=== PATIENT | male | born 1940 | race Caucasian/White ===

== ENCOUNTER 2019-01-24 16:50 | Emergency (ER) | payer MEDICARE, OTHER ==
[~2019-01-24] VITALS: Ht 175.3 cm; Wt 114.0 kg
[2019-01-24 17:58] LABS: BASOPHILS % (AUTO) 0.7 % (0-1); EOSINOPHILS # (AUTO) 0.1 X10'3 (0-0.9); EOSINOPHILS % (AUTO) 1.4 % (0-6); HEMOGLOBIN 13.9 g/dl (14.0-17.9); LYMPHOCYTES # (AUTO) 1.4 X10'3 (1.1-4.8); LYMPHOCYTES % (AUTO) 22.2 % (21-51); MEAN CORPUSCULAR HGB CONC 33.8 g/dL (33.0-36.5); MEAN CORPUSCULAR VOLUME 100.7 FL (78-98); MEAN PLATELET VOLUME 9.6 FL (7.4-10.4); MONOCYTES # (AUTO) 0.9 X10'3 (0-0.9); MONOCYTES % (AUTO) 14.4 % (2-12); NEUTROPHILS # (AUTO) 3.9 X10'3 (1.8-7.7); NEUTROPHILS % (AUTO) 61.3 % (42-75); PLATELET COUNT 161 X10'3 (140-440); RED BLOOD COUNT 4.08 X10'6 (4.70-6.10); RED CELL DISTRIBUTION WIDTH 13.8 % (11.5-14.5); WHITE BLOOD COUNT 6.4 X10'3 (4.5-11.0)
[2019-01-24 18:18] LABS: ALANINE AMINOTRANSFERASE 32 U/L (12-78); ALBUMIN 3.4 G/DL (3.4-5.0); ALBUMIN/GLOBULIN RATIO 1.1 (1.1-1.5); ALKALINE PHOSPHATASE 63 IU/L (46-116); ANION GAP 9 (8-16); ASPARTATE AMINO TRANSFERASE 34 U/L (10-37); BILIRUBIN,TOTAL 1.1 MG/DL (0.1-1.0); BLOOD UREA NITROGEN 17 MG/DL (7-18); BUN/CREATININE RATIO 14.9 (5.4-32.0); CALCIUM 8.6 MG/DL (8.5-10.1); CHLORIDE 104 MMOL/L (99-107); CREATININE 1.14 MG/DL (0.60-1.10); GLUCOSE 115 MG/DL (70-104); POTASSIUM 4.1 MMOL/L (3.5-5.1); SODIUM 137 MMOL/L (135-145); TOTAL CARBON DIOXIDE 23.6 MMOL/L (24-32); TOTAL PROTEIN 6.6 G/DL (6.4-8.2); eGFR 62 ML/MIN
[2019-01-24] MEDS ORDERED: azithromycin 250mg tablet PO ONE (20:00)
[2019-01-24] MEDS ORDERED: AZIT250T PO (20:01)
[2019-01-24] MEDS ORDERED: normal saline 1000ML IV soln IVB ONE (20:30)
--- NOTE | 2019-01-24 21:23 | NUR ---
DR BYRD AT BEDSIDE, AT BEDSIDE,NO DISTRESS NOTED,WILL CONT TO MONITOR.
[2019-01-24 21:50] VITALS: BP 164/76
[2019-01-24 22:00] LABS: CLARITY,URINE CLEAR (Clear); COLOR,URINE YELLOW (Yellow); GLUCOSE, URINE NEGATIVE (Neg); KETONES,URINE TRACE mg/dl (Neg); LEUKOCYTE ESTERASE ,URINE NEGATIVE (Neg); NITRITES, URINE NEGATIVE (Neg); OCCULT BLOOD,URINE NEGATIVE (Neg); PH,URINE 6.5 (4.8-8.0); PROTEIN,URINE NEGATIVE (Neg); UA COLLECTION TYPE CLN CATCH MIDSTREAM; UROBILINOGEN,URINE 0.2 E.U/dL (0.2-1.0)
== END 2019-01-24 21:53 | disposition home or self-care (01) ==
LOC: ER 16:50
DX: E86.0 Dehydration (principal); R53.1 Weakness; R05 Cough; E78.00 Pure hypercholesterolemia, unspecified; I10 Essential (primary) hypertension; E11.42 Type 2 diabetes mellitus with diabetic polyneuropathy; F17.200 Nicotine dependence, unspecified, uncomplicated; Z98.890 Other specified postprocedural states
CPT/HCPCS: 36415; 71045; 80053; 81003; 83605; 85025; 87040; 93005; 99284; J7030

== ENCOUNTER 2019-11-24 09:42 | Emergency (ER) | payer OTHER ==
[~2019-11-24] VITALS: Ht 175.3 cm; Wt 109.5 kg
[2019-11-24] MEDS ORDERED: magnesium citrate 296ml oral solution PO ONE (11:30)
[2019-11-24 11:42] VITALS: BP 131/66
[2019-11-24 13:45] LABS: OCCULT BLOOD STOOL NEGATIVE (Neg)
== END 2019-11-24 11:44 | disposition home or self-care (01) ==
LOC: ER 09:43
DX: K59.00 Constipation, unspecified (principal); N28.1 Cyst of kidney, acquired; E11.42 Type 2 diabetes mellitus with diabetic polyneuropathy; E78.00 Pure hypercholesterolemia, unspecified; I10 Essential (primary) hypertension; J44.9 Chronic obstructive pulmonary disease, unspecified; G47.30 Sleep apnea, unspecified; Z98.890 Other specified postprocedural states
CPT/HCPCS: 74176; 82272; 99284

== ENCOUNTER 2019-12-13 19:01 | Emergency (ER) | payer MEDICARE, OTHER ==
[~2019-12-13] VITALS: Ht 172.7 cm; Wt 110.0 kg
[2019-12-13] MEDS ORDERED: aspirin 81mg tab.chew PO ONE (19:40)
[2019-12-13] MEDS ORDERED: diltiazem 5mg/ml 5ml inj. IV ONE (19:40)
--- NOTE | 2019-12-13 19:56 | NUR ---
PT STATED HE DOES NOT WANT TO TAKE HIS ASPIRIN . SAID HE DOES NOT WANT TO TAKE THE ASPIRIN . EDUCATED PT THAT THE ASPIRIN WILL HELP HIS CHEST PAIN . PT STILL NOT WANTING TO TAKE THE MEDICATION ASKED TO SPEAK TO MD . NOTIFIED DR ARROYO OF THE PT CONCERNS .
--- NOTE | 2019-12-13 19:58 | NUR ---
CHEST XRAY COMPLETE
[2019-12-13 20:01] LABS: BASOPHILS % (AUTO) 0.8 % (0-1); EOSINOPHILS # (AUTO) 0.3 X10'3 (0-0.9); HEMOGLOBIN 14.2 g/dl (14.0-17.9); LYMPHOCYTES # (AUTO) 1.9 X10'3 (1.1-4.8); LYMPHOCYTES % (AUTO) 31.9 % (21-51); MEAN CORPUSCULAR HEMOGLOBIN 34.4 PG (27.0-31.0); MEAN CORPUSCULAR HGB CONC 33.7 g/dL (33.0-36.5); MEAN PLATELET VOLUME 9.5 FL (7.4-10.4); MONOCYTES # (AUTO) 0.6 X10'3 (0-0.9); MONOCYTES % (AUTO) 10.6 % (2-12); NEUTROPHILS # (AUTO) 3.1 X10'3 (1.8-7.7); NEUTROPHILS % (AUTO) 51.7 % (42-75); PLATELET COUNT 152 X10'3 (140-440); RED BLOOD COUNT 4.11 X10'6 (4.70-6.10); RED CELL DISTRIBUTION WIDTH 13.6 % (11.5-14.5)
--- NOTE | 2019-12-13 20:06 | NUR ---
PT TO CT
[2019-12-13 20:15] LABS: ALANINE AMINOTRANSFERASE 22 U/L (12-78); ALBUMIN 3.4 G/DL (3.4-5.0); ALBUMIN/GLOBULIN RATIO 1.2 (1.1-1.5); ALKALINE PHOSPHATASE 109 IU/L (46-116); ANION GAP 9 (8-16); ASPARTATE AMINO TRANSFERASE 16 U/L (10-37); BILIRUBIN,TOTAL 0.4 MG/DL (0.1-1.0); BLOOD UREA NITROGEN 17 MG/DL (7-18); BUN/CREATININE RATIO 15.9 (5.4-32.0); CALCIUM 8.1 MG/DL (8.5-10.1); CHLORIDE 106 MMOL/L (99-107); CREATININE 1.07 MG/DL (0.60-1.10); GLUCOSE 138 MG/DL (70-104); POTASSIUM 3.8 MMOL/L (3.5-5.1); SODIUM 142 MMOL/L (135-145); TOTAL PROTEIN 6.2 G/DL (6.4-8.2); eGFR 66 ML/MIN
[2019-12-13 20:17] LABS: TROPONIN I < 0.04 NG/ML (0.0-0.05)
--- NOTE | 2019-12-13 20:18 | NUR ---
pt back from ct
--- NOTE | 2019-12-13 20:27 | NUR ---
md todd clarified aspirin with patient pt hr at 76 -78 dr todd aware the diltiazen at this time repeat 12 lead ekg
--- NOTE | 2019-12-13 20:30 | NUR ---
TECH BAIG TO DO 12 LEAD
[2019-12-13 20:58] LABS: CLARITY,URINE CLEAR (Clear); COLOR,URINE YELLOW (Yellow); GLUCOSE, URINE 100 mg/dl (Neg); KETONES,URINE NEGATIVE (Neg); LEUKOCYTE ESTERASE ,URINE NEGATIVE (Neg); NITRITES, URINE NEGATIVE (Neg); OCCULT BLOOD,URINE NEGATIVE (Neg); PROTEIN,URINE NEGATIVE (Neg); UROBILINOGEN,URINE 0.2 E.U/dL (0.2-1.0)
[2019-12-13 21:03] LABS: UA COLLECTION TYPE URINAL
[2019-12-13] MEDS ORDERED: FLEC50TA28 PO (21:41)
[2019-12-13 22:57] VITALS: BP 164/65
== END 2019-12-13 22:59 | disposition home or self-care (01) ==
LOC: ER 19:02
DX: R42 Dizziness and giddiness (principal); I48.91 Unspecified atrial fibrillation; R51 Headache; R06.02 Shortness of breath; R07.9 Chest pain, unspecified; E11.42 Type 2 diabetes mellitus with diabetic polyneuropathy; E78.00 Pure hypercholesterolemia, unspecified; I10 Essential (primary) hypertension; J44.9 Chronic obstructive pulmonary disease, unspecified; Z98.890 Other specified postprocedural states; Z79.899 Other long term (current) drug therapy
CPT/HCPCS: 36415; 70450; 71045; 80053; 81003; 84484; 85025; 85610; 93005; 99285

== ENCOUNTER 2020-07-04 11:47 | Emergency (ER) | payer OTHER, MEDICARE ==
[~2020-07-04] VITALS: Ht 175.3 cm; Wt 109.9 kg
[~2020-07-04 11:47] MED LIST: FLEC50TA28 PO
[2020-07-04] MEDS ORDERED: TETanus/Pertussis (Acell)/Diphther VAC/PF (Tdap-Adult) 0.5ml syringe IMVAC ONE (13:35)
[2020-07-04 13:39] VITALS: BP 138/68
== END 2020-07-04 13:37 | disposition home or self-care (01) ==
LOC: ER 11:48
DX: T23.202A Burn of second degree of left hand, unspecified site, initial encounter (principal); T23.201A Burn of second degree of right hand, unspecified site, initial encounter; T20.212A Burn of second degree of left ear [any part, except ear drum], initial encounter; E11.42 Type 2 diabetes mellitus with diabetic polyneuropathy; E78.00 Pure hypercholesterolemia, unspecified; I10 Essential (primary) hypertension; J44.9 Chronic obstructive pulmonary disease, unspecified; Z98.890 Other specified postprocedural states; Z79.899 Other long term (current) drug therapy; X08.8XXA Exposure to other specified smoke, fire and flames, initial encounter; Y93.89 Activity, other specified; Y92.89 Other specified places as the place of occurrence of the external cause; Y99.8 Other external cause status
CPT/HCPCS: 16020; 99282

== ENCOUNTER 2025-05-21 10:42 | Emergency (ER) | payer OTHER, MEDICARE ==
[~2025-05-21] VITALS: Ht 170.2 cm; Wt 97.7 kg
[2025-05-21 10:46] VITALS: BP 136/74; PULSE 85; RESP 18; O2SAT 99
[2025-05-21 13:43] VITALS: TEMP 98.5
--- NOTE | 2025-05-21 15:23 | Physician Documentation ---
History of Present Illness ~ Chief Complaint: Back Pain Stated Complaint: RIGHT SIDE BACK PAIN Time Seen by MD: 12:47 Primary Medical Doctor: MD Hakan at [facility] Patient is seen today with complaints of pain of his back mostly on the right side after falling through a port about three weeks ago. Patient states the back pain just isn't getting better. Patient denies any saddle anesthesia or changes in bowel or bladder habits. Or numbness or tingling or weakness of the lower extremities. Patient has no other concern or complaint at this time. Medication Reconciliation Allergies: Coded Allergies: No Known Allergies (Unverified , 05/21/25) Scheduled Flecainide Acetate (Flecainide Acetate), 1 TAB PO Q12H Past Medical History Past Medical History: Peripheral Neuropathy, Sinusitis, High Cholesterol, Hypertension, COPD, Sleep Apnea, Diverticulitis, Diverticulosis, Diabetes, *PSYCH* Past Surgical History: orthopedic surgeries Alcohol Use: Rarely Drug Use: none Lives with: Spouse Lives In: Home Review of Systems Constitutional: Denies: chills, fever, weakness Eyes: Denies: pain, blurred vision ENT: Denies: ear pain, nose pain, throat pain, mouth pain Respiratory: Denies: cough, shortness of breath Cardiovascular: Denies: chest pain, palpitations Gastrointestinal: Denies: abdominal pain, nausea, vomiting Genitourinary: Denies: burning, dysuria Male Genitalia: Denies: penile discharge, testicular pain Neurological: Denies: headache, dizziness Musculoskeletal: Denies: pain, swelling Integumentary: Denies: rash, lesions Allergic/Immunologic: Denies: hives, itching Hematologic/Lymphatic: Denies: no symptoms reported Psychiatric: Denies: depression, anxiety Physical Exam Physical Exam Vital Signs: Temperature: 98.5, Source: Temporal, Heart Rate: 85, Respiratory Rate: 18, BP: 136/74, Pulse Oximetry: 99, Weight: 97.730 Oxygen Flow Rate: 0 Physical Exam General: Awake and Alert, no acute distress. HEENT: Conjunctiva pink, Sclera clear, Mucus Membranes moist. Neck: Supple without masses and tenderness. Resp: Unlabored. Lungs clear to auscultation bilaterally. Musculoskeletal: Patient on exam has significantly decreased range of motion of the lumbar and thoracic spine in all planes of motion. Patient is neurovascularly intact distally. Motor function intact distally. Extremities: No cyanosis,clubbing or edema. Skin: Warm and Dry. Progress Results/Orders Results/Orders Vital Signs 05/21/25 05/21/25 10:46 13:43 Temp 98.5 98.5 Pulse 85 Resp 18 B/P (MAP) 136/74 Pulse Ox 99 O2 Flow Rate 0 Medical Decision Making Findings Patient is seen today with complaints of pain of his back mostly on the right side after falling through a port about three weeks ago. Patient states the back pain just isn't getting better. Patient denies any saddle anesthesia or changes in bowel or bladder habits. Or numbness or tingling or weakness of the lower extremities. Patient has no other concern or complaint at this time. Patient unfortunately left prior to any further imaging or exam or treatment. Patient will return to ED with any worsening, concerning or changing symptoms. Departure Disposition: 07 LEFT AWOL/ELOPED Impression: Primary Impression: Low back pain Qualified Codes: M54.50 - Low back pain, unspecified Additional Impression: Strain of lumbar region Qualified Codes: S39.012A - Strain of muscle, fascia and tendon of lower back, initial encounter Condition: Stable Discharge Instructions: Acute Back Pain, Adult Additional Instructions: Patient unfortunately left prior to any further imaging or exam or treatment. Patient will return to ED with any worsening, concerning or changing symptoms. Referrals: NO PRIMARY CARE PROVIDER (PCP) Signature Scribe Signature: No scribe Attestation: No scribe FRED JACOB PAC May 21, 2025 15:23
== END 2025-05-21 13:44 | disposition left against medical advice (07) ==
LOC: ER 10:43
DX: S39.012A Strain of muscle, fascia and tendon of lower back, initial encounter (principal); E11.42 Type 2 diabetes mellitus with diabetic polyneuropathy; J44.9 Chronic obstructive pulmonary disease, unspecified; I10 Essential (primary) hypertension; G47.30 Sleep apnea, unspecified; E78.00 Pure hypercholesterolemia, unspecified; Z98.890 Other specified postprocedural states; W18.30XA Fall on same level, unspecified, initial encounter; Y93.89 Activity, other specified; Y92.89 Other specified places as the place of occurrence of the external cause; Y99.8 Other external cause status
CPT/HCPCS: 99282